=== PATIENT | female | born 1940 | race Two or more races ===

== ENCOUNTER → 2021-09-27 | Outpatient (CLI) | payer MEDICARE ==
[~2021-09-27] MED LIST: BARIUM SULFATE 60% 355 ML SUSP PO ONE; BARIUM SULFATE 700 MG TABLET PO ONE; SIMETHICONE/SOD BICARB/CITRIC ACID PACKET. PO ONE
--- NOTE | 2021-09-27 13:09 | RAD ---
EXAMINATION: Fluoroscopic esophagram INDICATION: Dysphagia COMPARISON: None PROCEDURE DETAILS: Performing physician: Mitch Guillory DO Fluoro time: 2.2 minutes Gas granules: Yes Distribution Agent image was obtained after which the patient consumed thin barium after which gas granules were g iven. Multiple images were obtained in upright and horizontal positions. FINDINGS: Esophagus: Swallowing was initiated without difficulty. No aspiration. Mild nonpropulsive esophageal contractions results in delayed passage of contrast into the stomach. The esophagus is normal in cour se and caliber without evidence of stricture or mass. Mucosal detail is unremarkable. Small hiatal he rnia is visualized. Gastroesophageal reflux is visualized. 13mm barium tablet passes without difficul ty. IMPRESSION: 1. Mild nonpropulsive esophageal contractions . 2. Small hiatal hernia with gastroesophageal reflux. Electronically signed by: Mitch Guillory DO (09/27/2021 1:07 PM) [id number]
== END ==
LOC: RAD 08:45
PROVIDERS: ATTEND Family Medicine
DX: K21.9 Gastro-esophageal reflux disease without esophagitis (principal); K44.9 Diaphragmatic hernia without obstruction or gangrene
CPT/HCPCS: 74220